=== PATIENT | female | born 1990 | race Caucasian/White ===

== ENCOUNTER → 2020-11-13 13:06 | Outpatient (CLI) | payer OTHER, BC, SELFPAY ==
--- NOTE | ~2020-11-13 | XR_ITS ---
XR cervical spine 4-5V DATE: 11/13/2020 13:33 INDICATION: Neck pain TECHNIQUE: AP, open-mouth, lateral, swimmer views COMPARISON: None FINDINGS: C1 and C2 are normally aligned and the odontoid process is intact. There is mild anterolisthesis at C2-3. The cervical spine is otherwise normally aligned. No fracture or dislocation, locked facet or prevertebral soft tissue swelling. Cervical interspaces appear relatively well preserved. IMPRESSION: Mild anterolisthesis at C2-3 Reviewed, dictated and finalized at location B.
== END ==
PROVIDERS: PCP Family Medicine; Visit Provider Family Medicine
DX: M54.2 Cervicalgia (principal)
CPT/HCPCS: 72050